=== PATIENT | female | born 1990 | race Hispanic/Latino ===

== ENCOUNTER 2017-11-15 14:05 | Inpatient (IN) | payer SELFPAY ==
[2017-11-15 14:40] LABS: #Eosinphils 0.1 thou/uL (0.0-0.7); #Lymphocytes 0.5 thou/uL (1.20-3.40); #Monocytes 0.5 thou/uL (0.11-0.59); #Neutrophils 6.5 thou/uL (1.40-6.50); %Basophils 0.3 % (0.0-1.0); %Eosinophils 0.8 % (0.0-10.0); %Lymphocytes 6.9 % (21.0-51.0); %Monocytes 6.8 % (0.0-10.0); Mean Platelet Volume 8.9 fL (7.4-10.4); Red Blood Cell (RBC) Count 4.82 mill/uL (4.20-5.40); White Blood Cell (WBC) Count 7.7 thou/uL (4.8-10.8)
[2017-11-15] MEDS ORDERED: methylPREDNISolone Sod Succ/PF 125 MG/2 ML VIAL ONE (14:44)
[2017-11-15] MEDS ORDERED: Magnesium Sulfate 2 GM/100 ML BAG ONE (14:44)
[2017-11-15 14:58] LABS: Anion Gap 15 mmol/L (10-20); BUN (Urea Nitrogen) 12 mg/dL (7.0-18.7); Calc. Creatinine Clearance 0 mL/min (70-130); Calcium 8.9 mg/dL (7.8-10.44); Carbon Dioxide 19 mmol/L (22-29); Chloride 106 mmol/L (98-107); Estimated GFR-MDRD 60
[2017-11-15] MEDS ORDERED: Sodium Chloride For Inhalation 0.9% 3 ML NEB ONE (15:01)
[2017-11-15] MEDS ORDERED: Albuterol Sulfate 1.25 MG/3 ML NEB ONE (15:01)
[2017-11-15] MEDS ORDERED: Albuterol Sulfate 2.5 mg/0.5 ml Neb ONE (15:02)
--- NOTE | 2017-11-15 15:16 | RAD ---
PORTABLE CHEST: HISTORY: Dyspnea. COMPARISON: 10/21/16. FINDINGS: Lungs are clear. No infiltrates seen. Heart and mediastinum unremarkable. IMPRESSION: No acute process. POS: [facility]
[2017-11-15] MEDS ORDERED: Oseltamivir 75 MG CAP PO SCH (15:45)
--- NOTE | 2017-11-15 16:07 | HP ---
PRIMARY CARE PHYSICIAN: [facility], Dr. Araceli Delatorre. REASON FOR ADMISSION: Influenza A, asthma exacerbation. HISTORY OF PRESENT ILLNESS: A 27-year-old female with a history of asthma as well as morbid obesity, who presented to the emergency room for evaluation of increasing shortness of breath. Patient repor ts that she is sick for the last 3 days. Initially symptoms started with runny nose, body ache, head ache, and sore throat for 1 or 2 days, symptoms were mild and she was trying [id number] medicat ion. Subsequently, she started having fever with chills and she was having more cough and gurgling s ound in her throat and subsequently she started having increasing shortness of breath. Last night, t he patient's symptoms gradually getting worse. She was not able to sleep because of shortness of paulette ath and wheezing. She was having cough productive of sputum. She also had worsening of rhinorrhea, sore throat, headache, body ache and she was feeling very weak and fatigued. This morning, the patie nt was not able to breathe and she was having fever and chills and that is why she decided to come to the emergency room for evaluation. In the emergency room, initially patient was relatively hypoxic. She was tachycardic, tachypneic, an d routine blood tests showed Influenza A positive. The patient is being admitted for asthma exacerbation and influenza A. The patient also reports that many other family member also has similar type of problem. She denies any recent travel. She denie s any pleuritic chest pain. She denies any dizziness or syncope. She denies any lower extremity valery ma. She denies any UTI or constipation, melena or hematochezia. She denies any smoking. PAST MEDICAL HISTORY: Moderate persistent asthma, morbid obesity. PAST SURGICAL HISTORY: Reviewed and negative. ALLERGIES: No known drug allergies. CURRENT HOME MEDICATIONS: Proventil inhaler and nebulization as needed basis, Flonase nasal spray as needed. SOCIAL HISTORY: Patient lives at home. No history of tobacco, alcohol or illicit drug abuse. FAMILY HISTORY: Multiple family members has a history of asthma. REVIEW OF SYSTEMS: The following complete review of systems was negative, unless otherwise mentioned in the HPI or below: CONSTITUTIONAL: Weight loss or gain, ability to conduct usual activities. SKIN: Rash, itching. EYES: Double vision, pain. ENT/MOUTH: Nose bleeding, neck stiffness, pain, tenderness. CARDIOVASCULAR: Palpitations, dyspnea on exertion, orthopnea. RESPIRATORY: Shortness of breath, wheezing, cough, hemoptysis, fever or night sweats. GASTROINTESTINAL: Poor appetite, abdominal pain, heartburn, nausea, vomiting, constipation, or diarr hea. GENITOURINARY: Urgency, frequency, dysuria, nocturia. MUSCULOSKELETAL: Pain, swelling. NEUROLOGIC/PSYCHIATRIC: Anxiety, depression. ALLERGY/IMMUNOLOGIC: Skin rash, bleeding tendency. Please see my HPI for pertinent positives and negatives. All other review of systems reviewed and ne gative except as mentioned in the HPI. EMERGENCY ROOM COURSE: So far, patient has received DuoNeb therapy, magnesium sulfate 2 grams, Solu- Medrol 125 mg and Rocephin 1 gram and IV fluid. PHYSICAL EXAMINATION: VITAL SIGNS: On arrival, blood pressure 124/81, pulse 123, respiratory rate 24, saturation 92% on 2 liter oxygen, temperature 99.4. Weight 104.3 kilograms. GENERAL: The patient is currently in mild respiratory distress, tachycardic. HEAD: Normocephalic, atraumatic. EYES: Pupils round, reactive to light. Extraocular muscle intact. ENT: Oropharynx within normal limits. Moist mucous membranes. Mild pharyngeal erythema noted. No exudate. NECK: Supple, no JVD, no thyromegaly, no carotid bruit, no jugular venous distention. LUNGS: The patient does have bilateral end expiratory wheezing reduced air movement, mild respirator y distress. The patient is able to talk in full sentences. No accessory muscles of respiration use. CARDIAC: S1, S2 regular, tachycardia, no murmur, no gallop, no rub. ABDOMEN: Obesity present. Bowel sounds present. Nontender, nondistended. No organomegaly, no mass , no suprapubic tenderness. BACK: Unremarkable, no CVA tenderness. EXTREMITIES: Upper extremity: Passive movement of all joints are normal. Lower extremity: No omero a. Good peripheral pulsation. SKIN: No skin rash. HEMATOLOGICAL: No lymphadenopathy. PSYCHIATRIC: Normal affect. SIGNIFICANT LABS: EKG showing sinus tachycardia, nonspecific ST-T changes. Chest x-ray based on my review, no acute cardiopulmonary process. CBC: WBC 7.7, hemoglobin 12.6, platelets 234. BMP: Sodium 136, potassium 3.9, chloride 106, carbon dioxide 19, anion gap 15, BUN 12, creatinine 1.10, glucose 115, calcium 8.9. test negativ e. Influenza A positive. ASSESSMENT AND PLAN/IMPRESSION: 1. Acute asthmatic bronchitis with asthma exacerbation, likely precipitated by upper respiratory inf ection with influenza A. This patient has associated respiratory distress. She also has hypoxia, ta chycardia and tachypnea. At this point, patient will require admission. The patient will be treated with albuterol nebulization every 6 hourly and 4 hourly p.r.n. We will continue Solu-Medrol 40 mg IV q.6 hourly, Dulera 2 puffs inhalation b.i.d., Mucinex 600 mg twice daily. Other symptomatic treatme nt with Chloraseptic spray, Robitussin cough syrup, Phenergan with codeine cough syrup and Tessalon P erles for cough treatment. Oxygen will be given to keep saturation above 92%. We will monitor in [facility]. We will also treat associated influenza A with Tamiflu. 2. Influenza A. We will treat Tamiflu 75 mg twice daily for 5 days. 3. Morbid obesity. Dietary education given, weight loss education given. Healthy lifestyle measure s discussed with the patient. 4. Deep venous thrombosis prophylaxis, Lovenox 40 mg subQ daily. 5. Gastrointestinal prophylaxis, Protonix 40 mg p.o. daily. 6. CODE STATUS: The patient is FULL CODE. Patient does not have any surrogate decision maker. Disposition plan based on clinical course, we are expecting patient's stay in hospital more than 2 mi dnights. Plan of care discussed with the patient and family member at bedside in the emergency room. We will also give her levofloxacin prophylactically to prevent any pulmonary infection with her inf alexa A.
[2017-11-15] MEDS ORDERED: Artificial Tears 18 DROP/0.9 ML EA EYE PRN (18:03)
[2017-11-15] MEDS ORDERED: Senokot 8.6 MG TAB PO PRN (18:03)
[2017-11-15] MEDS ORDERED: Sodium Chloride 0.65% Nasal 44 ML BOT EA NARE PRN (18:03)
[2017-11-15] MEDS ORDERED: Loratadine 10 MG TAB PO PRN (18:03)
[2017-11-15] MEDS ORDERED: Milk Of Magnesia 30 ML UDCUP PO PRN (18:03)
[2017-11-15] MEDS ORDERED: Ondansetron HCl/PF 4 MG/2 ML Vial IVP PRN (18:03)
[2017-11-15] MEDS ORDERED: Phenergan/Codeine 10-6.25mg/5ml UDCUP PO PRN (18:03)
[2017-11-15] MEDS ORDERED: Benzonatate 100 MG CAP PO PRN (18:03)
[2017-11-15] MEDS ORDERED: Eucerin (Mineral Oil/Petrolatum,White) 30 gm Jar TOP PRN (18:03)
[2017-11-15] MEDS ORDERED: Chloraseptic Spray 180 ml Bottle PO PRN (18:03)
[2017-11-15] MEDS ORDERED: Ondansetron ODT 4 MG TAB PO PRN (18:03)
[2017-11-15] MEDS ORDERED: hydrALAZINE 20 MG/ML VIAL SLOW IVP PRN (18:03)
[2017-11-15] MEDS ORDERED: Diabetic Tussin 200 MG/10 ML UDCUP PO PRN (18:03)
[2017-11-15] MEDS ORDERED: Loperamide HCl 2 MG CAP PO PRN (18:03)
[2017-11-15] MEDS ORDERED: Mag-Al 1200 mg/1200 mg/30 ML UDCUP PO PRN (18:03)
[2017-11-15] MEDS ORDERED: Zolpidem Tartrate 5 MG TAB PO PRN (18:03)
[2017-11-15 18:11] VITALS: BMI 40.7
[2017-11-15] MEDS: Albuterol Sulfate 2.5 mg/3 ml Neb NEB SCH ×2 (19:27→22:31)
[2017-11-15] MEDS: Mometasone/Formoterol 120 PUFF INHALER INH SCH (19:30)
[2017-11-15 19:38] LABS: Bilirubin Negative (Negative); Blood, Urine Trace (Negative); Glucose, Urine (Dipstick) 250 mg/dL (Negative); Ketone, Urine Negative (Negative); Nitrite Negative (Negative); Protein, Urine (Dipstick) 30 mg/dL (Neg-Trace)
[2017-11-15 19:39] LABS: Bacteria/HPF None Seen HPF (None Seen); Hyaline Casts/LPF 0-3 HYALINE CAST LPF (0-3 Hyaline); WBC/HPF 0-3 HPF (0-3)
[2017-11-15] MEDS ORDERED: Sterile Water 10 ML ONE (20:36)
[2017-11-15] MEDS: guaiFENesin ER 600 MG TAB PO SCH (20:44)
[2017-11-15] MEDS: Montelukast Sodium 10 mg Tablet PO SCH (20:45)
[2017-11-15] MEDS: HYDROcodone/Acetaminophen 5/325 mg Tablet PO PRN (20:45)
[2017-11-16] MEDS: HYDROcodone/Acetaminophen 5/325 mg Tablet PO PRN (01:28)
[2017-11-16] MEDS: Albuterol Sulfate 2.5 mg/3 ml Neb NEB SCH ×6 (02:19→22:15)
[2017-11-16 06:05] LABS: #Eosinphils 0.1 thou/uL (0.0-0.7); #Lymphocytes 0.6 thou/uL (1.20-3.40); #Monocytes 0.2 thou/uL (0.11-0.59); %Basophils 0.1 % (0.0-1.0); %Eosinophils 2.1 % (0.0-10.0); %Lymphocytes 8.1 % (21.0-51.0); %Monocytes 2.3 % (0.0-10.0); Hematocrit 35.9 % (36.0-47.0); Mean Platelet Volume 9.4 fL (7.4-10.4); White Blood Cell (WBC) Count 6.8 thou/uL (4.8-10.8)
[2017-11-16 06:12] LABS: Anion Gap 10 mmol/L (10-20); BUN (Urea Nitrogen) 11 mg/dL (7.0-18.7); Calc. Creatinine Clearance 145 mL/min (70-130); Carbon Dioxide 23 mmol/L (22-29); Chloride 106 mmol/L (98-107); Estimated GFR-MDRD 69
[2017-11-16] MEDS ORDERED: Dextrose 50% Abboject 50 ML SYRINGE SLOW IVP PRN (07:34)
[2017-11-16] MEDS ORDERED: HumaLOG 300 UNITS/3 ML VIAL SC PRN ×2 (07:34)
[2017-11-16] MEDS ORDERED: Dextrose 5% in Water 1,000 ML IV PRN (07:34)
[2017-11-16 07:54] LABS: Hemoglobin A1c 5.9 % (4.0-6.0)
[2017-11-16] MEDS: guaiFENesin ER 600 MG TAB PO SCH ×2 (08:36→20:36)
[2017-11-16] MEDS: Enoxaparin Sodium 40 MG/0.4 ML SYRINGE SC SCH (08:38)
[2017-11-16] MEDS: Acetaminophen 325 MG TAB PO PRN ×2 (08:42→18:47)
[2017-11-16] MEDS ORDERED: FLU VACC QS2017-18 36 mo. & older 0.5 ML SYRINGE IM ONE (09:00)
[2017-11-16] MEDS: Oseltamivir 75 MG CAP PO SCH ×2 (09:03→21:24)
[2017-11-16] MEDS: Mometasone/Formoterol 120 PUFF INHALER INH SCH ×2 (09:41→19:17)
--- NOTE | 2017-11-16 10:41 | PDOC.PN ---
- Subjective Encounter Start Date: 11/16/17 Encounter Start Time: 08:40 -: old records requested/rev Patient seen and examined. No new complaints. No overnight events - Objective Resuscitation Status: Resuscitation Status FULL:Full Resuscitation MAR Reviewed: Yes Vital Signs & Weight: Vital Signs (12 hours) Temp Pulse Resp BP Pulse Ox 11/16/17 09:41 98 16 11/16/17 09:33 96 16 97 11/16/17 07:49 98.5 F 91 19 115/65 92 L 11/16/17 04:00 98.4 F 105 H 19 114/65 93 L 11/16/17 02:19 96 18 11/16/17 00:00 98.3 F 115 H 20 114/65 93 L I&O: 11/15/17 11/16/17 11/17/17 06:59 06:59 06:59 Intake Total 650 Output Total 700 Balance -50 Result Diagrams: 11/16/17 05:07 11/16/17 05:07 Additional Labs: Accuchecks 11/16/17 09:07 POC Glucose 203 H Phys Exam - Physical Examination Constitutional: NAD HEENT: PERRLA, moist MMs, sclera anicteric Neck: no JVD Respiratory: no rales, wheezing present Cardiovascular: RRR, no significant murmur, no rub Gastrointestinal: soft, non-tender, no distention, positive bowel sounds Musculoskeletal: no edema, pulses present Neurological: non-focal, normal sensation, moves all 4 limbs Psychiatric: normal affect, A&O x 3 Skin: no rash, normal turgor Dx/Plan (1) Acute respiratory failure with hypoxia Code(s): J96.01 - ACUTE RESPIRATORY FAILURE WITH HYPOXIA Status: Acute (2) Asthma exacerbation Code(s): J45.901 - UNSPECIFIED ASTHMA WITH (ACUTE) EXACERBATION Status: Acute Qualifiers: Asthma severity: moderate Asthma persistence: persistent Qualified Code(s ): J45.41 - Moderate persistent asthma with (acute) exacerbation (3) Hyperglycemia, drug-induced Code(s): R73.9 - HYPERGLYCEMIA, UNSPECIFIED; T50.905A - ADVERSE EFFECT OF UNSP DRUG/MEDS/BIOL SUBST, INIT Status: Acute Comment: due to steroid (4) Influenza A Code(s): J10.1 - FLU DUE TO OTH IDENT INFLUENZA VIRUS W OTH RESP MANIFEST Status: Acute (5) Microcytic anemia Code(s): D50.9 - IRON DEFICIENCY ANEMIA, UNSPECIFIED Status: Chronic (6) Morbid obesity with BMI of 40.0-44.9, adult Code(s): E66.01 - MORBID (SEVERE) OBESITY DUE TO EXCESS CALORIES; Z68.41 - BODY MASS INDEX (BMI) 40.0-44.9, ADULT Status: Chronic - Plan cont current plan of care, plan discussed w/ family, continue antibiotics, respiratory therapy * continue tamiflu * continue levaquin * today will try to wean of oxygen * continue current optimum medical therapy for asthma as below * medication reviewed as below * symptomatic treatment * discussed with family bedside * pt is clinically improving. Review of Systems - Review of Systems Constitutional: negative: Fever, Chills, Sweats, Weakness, Malaise, Other Eyes: negative: Pain, Vision Change, Conjunctivae Inflammation, Eyelid Inflammation, Redness, Other ENT: negative: Ear Pain, Ear Discharge, Nose Pain, Nose Discharge, Nose Congestion, Mouth Pain, Mouth Swelling, Throat Pain, Throat Swelling, Other Respiratory: Cough, Shortness of Breath, Wheezing. negative: Dry, Hemoptysis, SOB with Excertion, Pleuritic Pain, Sputum Cardiovascular: negative: Chest Pain, Palpitations, Orthopnea, Paroxysmal Noc. Dyspnea, Edema, Light Headedness, Other Gastrointestinal: negative: Nausea, Vomiting, Abdominal Pain, Diarrhea, Constipation, Melena, Hematochezia, Other Genitourinary: negative: Dysuria, Frequency, Incontinence, Hematuria, Retention , Other Musculoskeletal: negative: Neck Pain, Shoulder Pain, Arm Pain, Back Pain, Hand Pain, Leg Pain, Foot Pain, Other Skin: negative: Rash, Lesions, Juvencio, Bruising, Other - Medications/Allergies Allergies/Adverse Reactions: Allergies Allergy/AdvReac Type Severity Reaction Status Date / Time No Known Drug Allergies Allergy Verified 11/16/17 07:57 Medications: Current Medications Acetaminophen (Tylenol) 650 mg PO Q4H PRN PRN Reason: Headache/Fever or Pain Last Admin: 11/16/17 08:42 Dose: 650 mg Hydrocodone Bitart/Acetaminophen ([place] 5/325) 1 tab PO Q4H PRN PRN Reason: Moderate Pain (4-6) Last Admin: 11/16/17 01:28 Dose: 1 tab Al Hydroxide/Mg Hydroxide (Maalox) 30 ml PO Q6H PRN PRN Reason: Heartburn or Indigestion Albuterol Sulfate (Ventolin) 2.5 mg NEB [id number] [facility] Last Admin: 11/16/17 09:33 Dose: 2.5 mg Artificial Tears (Tears Naturale) 0 drop EA EYE PRN PRN PRN Reason: Dry Eyes Benzonatate (Tessalon) 100 mg PO Q4H PRN PRN Reason: Cough Dextrose/Water (Dextrose 50%) 25 gm SLOW IVP PRN PRN PRN Reason: Hypoglycemia Enoxaparin Sodium (Lovenox) 40 mg SC 0900 [facility] Last Admin: 11/16/17 08:38 Dose: Not Given Glucagon (Glucagon) 1 mg IM PRN PRN PRN Reason: Hypoglycemia Guaifenesin (Robitussin Sf) 200 mg PO Q4H PRN PRN Reason: Cough Guaifenesin (Mucinex) 600 mg PO Q12HR [facility] Last Admin: 11/16/17 08:36 Dose: 600 mg Hydralazine HCl (Apresoline) 10 mg SLOW IVP Q4H PRN PRN Reason: Systolic BP > 180 Levofloxacin 500 mg/ Device 100 mls @ 100 mls/hr IVPB Q24HR [facility] Last Admin: 11/15/17 20:46 Dose: 100 mls Dextrose/Water (D5w) 1,000 mls @ 0 mls/hr IV .Q0M PRN; As Directed PRN Reason: Hypoglycemia Insulin Human Lispro (Humalog) 0 units SC .MODERATE SLIDING SC PRN PRN Reason: Moderate Correctional Scale Insulin Human Lispro (Humalog) 0 units SC .BEDTIME SLIDING SC PRN PRN Reason: Bedtime Correctional Scale Loperamide HCl (Imodium) 2 mg PO PRN PRN PRN Reason: Diarrhea/Loose Stools Loratadine (Claritin) 10 mg PO DAILYPRN PRN PRN Reason: Sinus Symptoms Magnesium Hydroxide (Milk Of Magnesium) 30 ml PO DAILYPRN PRN PRN Reason: Constipation Methylprednisolone Sodium Succinate (Solu-Medrol) 40 mg IVP 0200,0800,1400, 2000 [facility] Last Admin: 11/16/17 08:36 Dose: 40 mg Mineral Oil/White Petrolatum (Eucerin Cream) 0 gm TOP BIDPRN PRN PRN Reason: Dry Skin Mometasone Furoate/Formoterol Fumar (Dulera 200 Mcg/5 Mcg Inhaler) 2 puff INH BID-RT [facility] Last Admin: 11/16/17 09:41 Dose: 2 puff Montelukast Sodium (Singulair) 10 mg PO QPM [facility] Last Admin: 11/15/17 20:45 Dose: 10 mg Ondansetron HCl (Zofran Odt) 4 mg PO Q6H PRN PRN Reason: Nausea/Vomiting Ondansetron HCl (Zofran) 4 mg IVP Q6H PRN PRN Reason: Nausea/Vomiting Oseltamivir Phosphate (Tamiflu) 75 mg PO BID [facility] Stop: 11/20/17 21:01 Last Admin: 11/16/17 09:03 Dose: 75 mg Pantoprazole Sodium (Protonix) 40 mg PO DAILY [facility] Last Admin: 11/16/17 08:36 Dose: 40 mg Phenol (Chloraseptic [place] 180 Ml Bot) 0 ml PO PRN PRN PRN Reason: Sore Throat Last Admin: 11/16/17 09:03 Dose: 180 ml Promethazine HCl/Codeine (Phenergan/Codeine Syrup) 5 ml PO Q4H PRN PRN Reason: Cough Senna (Senokot) 2 tab PO HSPRN PRN PRN Reason: Constipation Sodium Chloride ([place] Nasal [place] 0.65%) 0 ml EA NARE QIDPRN PRN PRN Reason: Nasal Congestion Sodium Chloride (Flush - Normal Saline) 10 ml IVF Q12HR [facility] Last Admin: 11/16/17 08:36 Dose: Not Given Sodium Chloride (Flush - Normal Saline) 10 ml IVF PRN PRN PRN Reason: Saline Flush Zolpidem Tartrate (Ambien) 5 mg PO HSPRN PRN PRN Reason: Insomnia
[2017-11-16] MEDS ORDERED: Albuterol Sulfate 2.5 mg/3 ml Neb ONE (15:16)
[2017-11-16] MEDS: Montelukast Sodium 10 mg Tablet PO SCH (20:36)
[2017-11-17] MEDS: Albuterol Sulfate 2.5 mg/3 ml Neb NEB SCH ×2 (02:49→07:49)
[2017-11-17 07:58] VITALS: BP 107/56
[2017-11-17] MEDS: Mometasone/Formoterol 120 PUFF INHALER INH SCH (07:58)
[2017-11-17 08:14] VITALS: TEMP 98
[2017-11-17] MEDS: guaiFENesin ER 600 MG TAB PO SCH (08:22)
[2017-11-17] MEDS: Enoxaparin Sodium 40 MG/0.4 ML SYRINGE SC SCH (08:23)
[2017-11-17] MEDS: Oseltamivir 75 MG CAP PO SCH (08:30)
--- NOTE | 2017-11-17 09:50 | PDOC.PN ---
- Subjective Encounter Start Date: 11/17/17 Encounter Start Time: 08:30 Patient seen and examined. No new complaints. No overnight events - Objective Resuscitation Status: Resuscitation Status FULL:Full Resuscitation MAR Reviewed: Yes Vital Signs & Weight: Vital Signs (12 hours) Temp Pulse Resp BP Pulse Ox 11/17/17 08:00 98.0 F 99 16 11/17/17 07:58 99 16 11/17/17 07:57 90 24 H 107/56 L 92 L 11/17/17 07:52 92 L 11/17/17 07:49 99 16 11/17/17 05:20 97.9 F 92 20 119/67 93 L 11/17/17 02:49 95 11/17/17 02:25 90 92 L 11/17/17 00:50 98.0 F 92 20 105/54 L 97 11/16/17 22:15 95 I&O: 11/16/17 11/17/17 11/18/17 06:59 06:59 06:59 Intake Total 650 630 Output Total 700 850 Balance -50 -220 Result Diagrams: 11/16/17 05:07 11/16/17 05:07 Additional Labs: Accuchecks 11/17/17 11/16/17 11/16/17 05:27 22:05 16:22 POC Glucose 158 H 249 H 190 H 11/16/17 11:49 POC Glucose 199 H Phys Exam - Physical Examination Constitutional: NAD HEENT: PERRLA, moist MMs, sclera anicteric Neck: no JVD, supple Respiratory: no wheezing, no rales, no rhonchi Cardiovascular: RRR, no significant murmur, no rub Gastrointestinal: soft, non-tender, no distention, positive bowel sounds Musculoskeletal: no edema, pulses present Neurological: non-focal, normal sensation Psychiatric: normal affect, A&O x 3 Skin: no rash, normal turgor Dx/Plan (1) Acute respiratory failure with hypoxia Code(s): J96.01 - ACUTE RESPIRATORY FAILURE WITH HYPOXIA Status: Acute (2) Asthma exacerbation Code(s): J45.901 - UNSPECIFIED ASTHMA WITH (ACUTE) EXACERBATION Status: Acute Qualifiers: Asthma severity: moderate Asthma persistence: persistent Qualified Code(s ): J45.41 - Moderate persistent asthma with (acute) exacerbation (3) Hyperglycemia, drug-induced Code(s): R73.9 - HYPERGLYCEMIA, UNSPECIFIED; T50.905A - ADVERSE EFFECT OF UNSP DRUG/MEDS/BIOL SUBST, INIT Status: Acute Comment: due to steroid (4) Influenza A Code(s): J10.1 - FLU DUE TO OTH IDENT INFLUENZA VIRUS W OTH RESP MANIFEST Status: Acute (5) Microcytic anemia Code(s): D50.9 - IRON DEFICIENCY ANEMIA, UNSPECIFIED Status: Chronic (6) Morbid obesity with BMI of 40.0-44.9, adult Code(s): E66.01 - MORBID (SEVERE) OBESITY DUE TO EXCESS CALORIES; Z68.41 - BODY MASS INDEX (BMI) 40.0-44.9, ADULT Status: Chronic - Plan cont current plan of care, plan discussed w/ family, continue antibiotics, respiratory therapy * medication reviewed as below * symptomatic treatment * stable for discharge today. Review of Systems - Review of Systems ENT: negative: Ear Pain, Ear Discharge, Nose Pain, Nose Discharge, Nose Congestion, Mouth Pain, Mouth Swelling, Throat Pain, Throat Swelling, Other Respiratory: negative: Cough, Dry, Shortness of Breath, Hemoptysis, SOB with Excertion, Pleuritic Pain, Sputum, Wheezing Cardiovascular: negative: Chest Pain, Palpitations, Orthopnea, Paroxysmal Noc. Dyspnea, Edema, Light Headedness, Other Gastrointestinal: negative: Nausea, Vomiting, Abdominal Pain, Diarrhea, Constipation, Melena, Hematochezia, Other Genitourinary: negative: Dysuria, Frequency, Incontinence, Hematuria, Retention , Other Musculoskeletal: negative: Neck Pain, Shoulder Pain, Arm Pain, Back Pain, Hand Pain, Leg Pain, Foot Pain, Other - Medications/Allergies Allergies/Adverse Reactions: Allergies Allergy/AdvReac Type Severity Reaction Status Date / Time No Known Drug Allergies Allergy Verified 11/16/17 07:57 Medications: Current Medications Acetaminophen (Tylenol) 650 mg PO Q4H PRN PRN Reason: Headache/Fever or Pain Last Admin: 11/16/17 18:47 Dose: 650 mg Hydrocodone Bitart/Acetaminophen ([place] 5/325) 1 tab PO Q4H PRN PRN Reason: Moderate Pain (4-6) Last Admin: 11/16/17 01:28 Dose: 1 tab Al Hydroxide/Mg Hydroxide (Maalox) 30 ml PO Q6H PRN PRN Reason: Heartburn or Indigestion Albuterol Sulfate (Ventolin) 2.5 mg NEB [id number] [facility] Last Admin: 11/17/17 07:49 Dose: 2.5 mg Artificial Tears (Tears Naturale) 0 drop EA EYE PRN PRN PRN Reason: Dry Eyes Benzonatate (Tessalon) 100 mg PO Q4H PRN PRN Reason: Cough Dextrose/Water (Dextrose 50%) 25 gm SLOW IVP PRN PRN PRN Reason: Hypoglycemia Enoxaparin Sodium (Lovenox) 40 mg SC 0900 [facility] Last Admin: 11/17/17 08:23 Dose: Not Given Glucagon (Glucagon) 1 mg IM PRN PRN PRN Reason: Hypoglycemia Guaifenesin (Robitussin Sf) 200 mg PO Q4H PRN PRN Reason: Cough Guaifenesin (Mucinex) 600 mg PO Q12HR [facility] Last Admin: 11/17/17 08:22 Dose: 600 mg Hydralazine HCl (Apresoline) 10 mg SLOW IVP Q4H PRN PRN Reason: Systolic BP > 180 Levofloxacin 500 mg/ Device 100 mls @ 100 mls/hr IVPB Q24HR [facility] Last Admin: 11/16/17 20:35 Dose: 100 mls Dextrose/Water (D5w) 1,000 mls @ 0 mls/hr IV .Q0M PRN; As Directed PRN Reason: Hypoglycemia Insulin Human Lispro (Humalog) 0 units SC .MODERATE SLIDING SC PRN PRN Reason: Moderate Correctional Scale Insulin Human Lispro (Humalog) 0 units SC .BEDTIME SLIDING SC PRN PRN Reason: Bedtime Correctional Scale Loperamide HCl (Imodium) 2 mg PO PRN PRN PRN Reason: Diarrhea/Loose Stools Loratadine (Claritin) 10 mg PO DAILYPRN PRN PRN Reason: Sinus Symptoms Magnesium Hydroxide (Milk Of Magnesium) 30 ml PO DAILYPRN PRN PRN Reason: Constipation Methylprednisolone Sodium Succinate (Solu-Medrol) 40 mg IVP 0200,0800,1400, 2000 [facility] Last Admin: 11/17/17 08:22 Dose: 40 mg Mineral Oil/White Petrolatum (Eucerin Cream) 0 gm TOP BIDPRN PRN PRN Reason: Dry Skin Mometasone Furoate/Formoterol Fumar (Dulera 200 Mcg/5 Mcg Inhaler) 2 puff INH BID-RT [facility] Last Admin: 11/17/17 07:58 Dose: 2 puff Montelukast Sodium (Singulair) 10 mg PO QPM [facility] Last Admin: 11/16/17 20:36 Dose: 10 mg Ondansetron HCl (Zofran Odt) 4 mg PO Q6H PRN PRN Reason: Nausea/Vomiting Ondansetron HCl (Zofran) 4 mg IVP Q6H PRN PRN Reason: Nausea/Vomiting Oseltamivir Phosphate (Tamiflu) 75 mg PO BID [facility] Stop: 11/20/17 21:01 Last Admin: 11/17/17 08:30 Dose: 75 mg Pantoprazole Sodium (Protonix) 40 mg PO DAILY [facility] Last Admin: 11/17/17 08:23 Dose: 40 mg Phenol (Chloraseptic [place] 180 Ml Bot) 0 ml PO PRN PRN PRN Reason: Sore Throat Last Admin: 11/16/17 09:03 Dose: 180 ml Promethazine HCl/Codeine (Phenergan/Codeine Syrup) 5 ml PO Q4H PRN PRN Reason: Cough Senna (Senokot) 2 tab PO HSPRN PRN PRN Reason: Constipation Sodium Chloride ([place] Nasal [place] 0.65%) 0 ml EA NARE QIDPRN PRN PRN Reason: Nasal Congestion Sodium Chloride (Flush - Normal Saline) 10 ml IVF Q12HR [facility] Last Admin: 11/17/17 08:23 Dose: 10 ml Sodium Chloride (Flush - Normal Saline) 10 ml IVF PRN PRN PRN Reason: Saline Flush Last Admin: 11/17/17 02:26 Dose: 10 ml Zolpidem Tartrate (Ambien) 5 mg PO HSPRN PRN PRN Reason: Insomnia
--- NOTE | 2017-11-17 10:39 | DIS ---
PRIMARY CARE PHYSICIAN: Dr. Araceli Delatorre DATE OF ADMISSION: 11/15/2017 DATE OF DISCHARGE: 11/17/2017 DISCHARGE DISPOSITION: Home. PRIMARY DISCHARGE DIAGNOSES: 1. Influenza A. 2. Asthma exacerbation. 3. Acute respiratory failure with hypoxia, resolved. 4. Hyperglycemia due to steroid. SECONDARY DISCHARGE DIAGNOSES: Morbid obesity with BMI of 40, microcytic anemia, moderate persistent asthma. PRIMARY PROCEDURE/OPERATION: None. RADIOLOGICAL INVESTIGATION: Chest x-ray was unremarkable. SIGNIFICANT LABORATORIES: WBC 6.8, hemoglobin 11.6, platelets 236, hemoglobin A1c 5.9. Sodium 135, potassium 4.2, BUN 11, creatinine 0.97, calcium 9.0. Urinalysis unremarkable. Influenza A was posit nemesio. DISCHARGE MEDICATIONS: The patient will finish Tamiflu 75 mg p.o. twice daily for 3 more days, Maria Guadalupe elmira 100 mg p.o. q.4 hourly p.r.n., Pepcid 20 mg p.o. b.i.d., Mucinex 600 mg twice daily, Levaquin 500 mg p.o. daily for 5 days, Dulera 2 puffs inhalation b.i.d., Singulair 10 mg p.o. daily, prednisone 2 0 mg p.o. daily for 7 days. CONTRAINDICATIONS: None. CODE STATUS: FULL CODE. INPATIENT CONSULTANTS: None. ALLERGIES: No known drug allergy. DISCHARGE PLAN: Post hospital, the patient will follow up with primary care physician in 1 week. HOSPITAL COURSE: A 27-year-old female who was brought to the emergency room for cough, incr easing shortness of breath with fever and sore throat. The patient was having upper respiratory infe ction. She was also having flu-like symptoms and other family member was also having similar problem . The patient got short of breath and that was not improving with her routine inhaler and that is wh y she required an emergency room visit. The patient was hypoxic upon arrival. She appeared in SIRS criteria with tachycardia and hypoxia. She was suffering from influenza A related asthma exacerbatio n. She was admitted to medical floor. She was treated with Solu-Medrol, Tamiflu, empiric antibiotic therapy with Levaquin, DuoNeb and albuterol nebs and Dulera. With this, the patient's condition sig nificantly improved. We discontinue oxygen as she was not needing any oxygen anymore. The patient's symptomatology significantly improved. At this point, the patient is up to her baseline. While in hospital, she has steroid-induced hyperglycemia and we checked hemoglobin A1c which was 5.9 and that is why I provided patient education and to control her diet with diabetic diet as well as weight loss and exercise program was discussed. The patient is otherwise medically stable for discharge. The patient is seen and examined at bedside today. Please see my progress note from today. All new medication prescriptions sent to [facility]. Plan of care discussed with the patient and at bedside as well.
--- NOTE | 2017-12-18 13:14 | EKG ---
Test Reason : ER INDICATION Blood Pressure : / mmHG Vent. Rate : 119 BPM Atrial Rate : 119 BPM P-R Int : 132 ms QRS Dur : 080 ms QT Int : 330 ms P-R-T Axes : 004 -26 -15 degrees QTc Int : 464 ms Sinus tachycardia Nonspecific T wave abnormality Abnormal ECG Confirmed by KIRILL WILL DO ([id number]), online editor ALEXYS PARIKH ([id number]) on 12/18/2017 1:13:26 PM Referred By: Confirmed By:KIRILL WILL DO
== END 2017-11-17 11:48 | disposition home or self-care (01) | DRG 193 ==
LOC: ERS 14:05 → 3SE 18:00
PROVIDERS: ADMIT Internal Medicine; ATTEND Internal Medicine
DX: J10.1 Influenza due to other identified influenza virus with other respiratory manifestations (principal); J96.01 Acute respiratory failure with hypoxia; Z68.41 Body mass index [BMI] 40.0-44.9, adult; J45.41 Moderate persistent asthma with (acute) exacerbation; E66.01 Morbid (severe) obesity due to excess calories; D50.9 Iron deficiency anemia, unspecified; R73.9 Hyperglycemia, unspecified; T38.0X5A Adverse effect of glucocorticoids and synthetic analogues, initial encounter
CPT/HCPCS: 36415; 36416; 71010; 80048; 81001; 83036; 84703; 85025; 93005; 94640; 94644; 96361; 96365; 96375; A4216; J0696; J1650; J1956; J2920; J2930; J3475; J7611; J7620

== ENCOUNTER 2018-12-29 07:56 | Emergency (ER) | payer SELFPAY ==
[2018-12-29] MEDS ORDERED: Albuterol Sulfate 2.5 mg/0.5 ml Neb ONE ×3 (08:13)
[2018-12-29] MEDS ORDERED: Albuterol Sulfate 2.5 mg/3 ml Neb ONE (08:14)
--- NOTE | 2018-12-29 09:02 | RAD ---
PORTABLE CHEST 1 VIEW: Date: 12/29/18 Time: 0834 hours HISTORY: Asthma, syncope. FINDINGS: Comparison made with exam of 11/15/17. The heart size is normal. The lungs are well expanded without focal areas of consolidation, pneumotho races, or pleural effusions. IMPRESSION: No radiographic evidence of acute cardiopulmonary process. POS: C
== END 2018-12-29 09:38 | disposition home or self-care (01) ==
LOC: ERS 07:56
DX: J45.901 Unspecified asthma with (acute) exacerbation (principal); F43.9 Reaction to severe stress, unspecified; Z79.51 Long term (current) use of inhaled steroids
CPT/HCPCS: 71045; 87804; 94644; 96360; 96361; J7611

== ENCOUNTER 2024-06-23 08:04 | Emergency (ER) | payer SELFPAY ==
[2024-06-23] MEDS ORDERED: Orphenadrine Citrate 60 MG/2 ML VIAL ONE (09:01)
[2024-06-23 09:30] LABS: Bacteria/HPF None Seen HPF (None Seen); Bilirubin Negative (Negative); Blood, Urine Negative (Negative); CAUTI Indications for Culture Pelvic or flank pain; Clarity Clear (Clear); Glucose, Urine (Dipstick) Normal (Negative); Ketone, Urine Negative (Negative); Leukocyte Negative Leu/uL (Negative); Nitrite Negative (Negative); Protein, Urine (Dipstick) Negative (Neg-Trace); RBC/HPF 0-3 HPF (0-3); Specific Gravity, Urine 1.014 (1.002-1.036); Squamous Epithelial 0-3 HPF (0-3); Urobilinogen Normal mg/dL (Less than 2); WBC/HPF 0-3 HPF (0-3)
[2024-06-23 09:41] LABS: Urine Culture Reflex No No
== END 2024-06-23 10:16 | disposition home or self-care (01) ==
LOC: ERS 08:04
DX: M54.50 Low back pain, unspecified (principal); Z55.6 Problems related to health literacy
CPT/HCPCS: 81001; 96372; 99283; J2360